=== PATIENT | male | born 2000 | race Two or more races ===

== ENCOUNTER 2022-09-04 15:17 | Emergency (ER) | payer OTHER ==
[~2022-09-04] VITALS: Ht 165.1 cm; Wt 55.3 kg
[2022-09-04] MEDS ORDERED: CIPRO500 MG PO (18:05)
== END 2022-09-04 18:10 | disposition home or self-care (01) ==
LOC: ER 15:17
DX: S91.311A Laceration without foreign body, right foot, initial encounter (principal); W45.8XXA Other foreign body or object entering through skin, initial encounter; Y93.01 Activity, walking, marching and hiking; Y92.832 Beach as the place of occurrence of the external cause; Y99.9 Unspecified external cause status

== ENCOUNTER 2022-09-14 16:09 | Emergency (ER) | payer OTHER ==
[~2022-09-14] VITALS: Ht 165.1 cm; Wt 55.8 kg
[~2022-09-14 16:09] MED LIST: CIPRO500 MG PO
== END 2022-09-14 18:10 | disposition home or self-care (01) ==
LOC: ER 16:09
DX: Z48.02 Encounter for removal of sutures (principal)

== ENCOUNTER 2022-10-08 12:17 | Emergency (ER) | payer OTHER ==
[~2022-10-08] VITALS: Ht 165.1 cm; Wt 55.8 kg
== END 2022-10-08 16:34 | disposition home or self-care (01) ==
LOC: ER 12:17
DX: S51.851A Open bite of right forearm, initial encounter (principal); S81.852A Open bite, left lower leg, initial encounter; S81.851A Open bite, right lower leg, initial encounter; W54.0XXA Bitten by dog, initial encounter; Y93.89 Activity, other specified; Y92.89 Other specified places as the place of occurrence of the external cause; Y99.9 Unspecified external cause status